=== PATIENT | female | born 1980 | race Caucasian/White ===

== ENCOUNTER 2017-09-03 11:06 | Emergency (ER) | payer OTHER ==
[~2017-09-03] VITALS: Ht 157.4 cm; Wt 47.2 kg
[~2017-09-03 11:06] MED LIST: CIPROFLOXACIN500 MG PO; ESTRADIOL TD; VIBRAMYCIN100 MG PO; [UNRECOGNIZED DRUG - CODE] PO
[2017-09-03] MEDS ORDERED: NAPROSYN500 MG PO (11:36)
[2017-09-03] MEDS ORDERED: CYCLOBENZAPRINE10 MG PO (11:36)
== END 2017-09-03 11:48 | disposition home or self-care (01) ==
LOC: ED 11:06
DX: S29.012A Strain of muscle and tendon of back wall of thorax, initial encounter (principal); X58.XXXA Exposure to other specified factors, initial encounter; Y93.89 Activity, other specified; Y92.89 Other specified places as the place of occurrence of the external cause; Y99.8 Other external cause status

== ENCOUNTER 2017-10-15 17:03 | Emergency (ER) | payer OTHER ==
[~2017-10-15] VITALS: Ht 157.4 cm; Wt 47.2 kg
[~2017-10-15 17:03] MED LIST changes: +CYCLOBENZAPRINE10 MG PO; +NAPROSYN500 MG PO
[2017-10-15] MEDS ORDERED: ZITHROMAX250 MG PO (18:25)
[2017-10-15] MEDS ORDERED: PREDNISONE20 M1 PO (18:25)
[2017-10-15] MEDS ORDERED: FLONASE ALLERG9.9 ML NAS (18:25)
== END 2017-10-15 18:41 | disposition home or self-care (01) ==
LOC: ED 17:03
DX: M25.511 Pain in right shoulder (principal); J01.90 Acute sinusitis, unspecified; Z79.899 Other long term (current) drug therapy

== ENCOUNTER 2017-12-12 16:35 | Emergency (ER) | payer OTHER ==
[~2017-12-12] VITALS: Ht 157.4 cm; Wt 46.3 kg
[~2017-12-12 16:35] MED LIST changes: +FLONASE ALLERG9.9 ML NAS; +PREDNISONE20 M1 PO; +ZITHROMAX250 MG PO
[2017-12-12] MEDS ORDERED: PREDNISONE20 M1 PO (17:02)
== END 2017-12-12 17:15 | disposition home or self-care (01) ==
LOC: ED 16:35
DX: L23.7 Allergic contact dermatitis due to plants, except food (principal); Z79.899 Other long term (current) drug therapy

== ENCOUNTER 2019-04-17 21:29 | Emergency (ER) | payer OTHER ==
[~2019-04-17] VITALS: Ht 160 cm; Wt 47.6 kg
--- NOTE | ~2019-04-17 | EKG ---
[place], [place] ELECTROCARDIOGRAM REPORT NAME: FELICIANO RAMIREZ UNIT #: [id number] ROOM: DOCTOR: PATT DRAFT REPORT BIRTHDATE: [birth year] [facility] Test Date: 2019-04-17 Test Time: 22:21:54 Pat Name: FELICIANO RAMIREZ Department: Room: Gender: F Business Project Manager: SS RESP : 1980 Requested By: GAVIN RUIZ DNP Order Number: [id number] Reading MD: Kayleigh Moreno MD Measurements Intervals [place] Rate: 64 P: 58 HI: 118 QRS: 94 QRSD: 89 T: 32 QT: 392 QTc: 405 Interpretive Statements Sinus rhythm Borderline short HI interval Borderline right axis deviation Electronically Signed On 04-26-2019 5:28:50 PST by Kayleigh Moreno MD CM:EKGRPT:ELECTROCARDIOGRAM REPORT [id number] GAVIN BELTRE DRAFT REPORT GAVIN RUIZ DNP
[2019-04-17 22:00] LABS: BASO % 0.1 % (0.0-1.0); EOS # 0.1 10*3/uL (0.0-0.4); EOS % 0.6 % (1.0-4.0); HEMATOCRIT 36.6 % (37.0-47.0); HEMOGLOBIN 12.1 g/dl (12.0-16.0); LYMPH # 1.7 10*3/uL (1.3-4.4); LYMPH % 17.1 % (27.0-41.0); MEAN CELL VOLUME 91.5 fl (81.0-99.0); MEAN CORPUSCULAR HGB 30.3 pg (27.0-31.0); MEAN CORPUSCULAR HGB CONC 33.1 g/dl (33.0-37.0); MEAN PLATELET VOLUME 11.8 fl (9.6-12.3); MONO # 1.1 10*3/uL (0.1-1.0); MONO % 11.1 % (3.0-9.0); NEUT # 7.1 10*3/uL (2.3-7.9); NEUT % 70.8 % (47.0-73.0); PLATELET COUNT AUTOMATED 266 10*3/uL (130-400); RED CELL DISTRI WIDTH 12.3 % (0-14.5)
[2019-04-17 22:10] LABS: ACT PARTIAL THROMBO TIME 25.8 SECONDS (20.0-32.1); INTERNATIONAL NORM RATIO 0.9 (2.0-3.5)
[2019-04-17 22:18] LABS: ALBUMIN 3.2 gm/dl (3.1-4.5); ALKALINE PHOSPHATASE 104 U/L (45-117); BUN 10 mg/dl (7-24); CHLORIDE 110 mmol/L (98-107); CREATININE 0.84 mg/dL (0.55-1.02); LIPASE 85 U/L (73-393); POTASSIUM 3.4 mmol/L (3.5-5.1); SGOT/AST 18 IU/L (3-35); SGPT/ALT 17 U/L (12-78); SODIUM 139 mmol/L (136-145); TOTAL PROTEIN 7.3 gm/dL (6.4-8.2)
[2019-04-17 22:27] LABS: TROPONIN I < 0.015 ng/ml (<0.045)
[2019-04-17] MEDS ORDERED: PROVENTIL HFA6.7 GM INH (22:35)
[2019-04-17] MEDS ORDERED: PREDNISONE20 M1 PO (22:35)
[2019-04-17] MEDS ORDERED: ROBITUSSIN DM 101 OZ PO (22:35)
== END 2019-04-17 23:04 | disposition home or self-care (01) ==
LOC: ED 21:29
PROVIDERS: Nurse Practitioner Family
DX: J20.8 Acute bronchitis due to other specified organisms (principal); Z79.899 Other long term (current) drug therapy

== ENCOUNTER 2019-04-23 17:17 | Emergency (ER) | payer OTHER ==
[~2019-04-23] VITALS: Ht 160 cm; Wt 47.6 kg
[~2019-04-23 17:17] MED LIST changes: +PROVENTIL HFA6.7 GM INH; +ROBITUSSIN DM 101 OZ PO
[2019-04-23] MEDS ORDERED: TESSALON PERLE100 M1 PO (19:26)
[2019-04-23] MEDS ORDERED: PROVENTIL HFA6.7 GM INH (19:26)
[2019-04-23] MEDS ORDERED: PREDNISONE20 M1 PO (19:26)
== END 2019-04-23 19:27 | disposition home or self-care (01) ==
LOC: ED 17:17
DX: J20.8 Acute bronchitis due to other specified organisms (principal); Z79.899 Other long term (current) drug therapy

== ENCOUNTER 2020-02-09 17:54 | Emergency (ER) | payer OTHER ==
[~2020-02-09] VITALS: Ht 160 cm; Wt 46.7 kg
[~2020-02-09 17:54] MED LIST changes: +TESSALON PERLE100 M1 PO
[2020-02-09] MEDS ORDERED: ESTRADIOL IJ (18:26)
[2020-02-09] MEDS ORDERED: PROGESTERONE V (18:27)
[2020-02-09] MEDS ORDERED: CORTISONE SHOT (18:28)
[2020-02-09 19:07] LABS: EOS % 0.5 % (1.0-4.0); HEMATOCRIT 34.8 % (37.0-47.0); LYMPH # 1.3 10*3/uL (1.3-4.4); LYMPH % 21.5 % (27.0-41.0); MEAN CELL VOLUME 88.8 fl (81.0-99.0); MEAN CORPUSCULAR HGB 29.6 pg (27.0-31.0); MEAN CORPUSCULAR HGB CONC 33.3 g/dl (33.0-37.0); MEAN PLATELET VOLUME 12.5 fl (9.6-12.3); MONO # 0.8 10*3/uL (0.1-1.0); MONO % 12.2 % (3.0-9.0); NEUT # 4.1 10*3/uL (2.3-7.9); NEUT % 65.5 % (47.0-73.0); PLATELET COUNT AUTOMATED 233 10*3/uL (130-400); RED BLOOD COUNT 3.92 10*6/uL (4.10-5.10); RED CELL DISTRI WIDTH 13.2 % (0-14.5); WHITE BLOOD COUNT 6.2 10*3/uL (4.8-10.8)
[2020-02-09 19:23] LABS: ALBUMIN 3.2 gm/dl (3.1-4.5); ALKALINE PHOSPHATASE 109 U/L (45-117); BUN 7 mg/dl (7-24); CHLORIDE 104 mmol/L (98-107); CREATININE 0.77 mg/dL (0.55-1.02); SGOT/AST 18 IU/L (3-35); SGPT/ALT 14 U/L (12-78); SODIUM 142 mmol/L (136-145); TOTAL PROTEIN 7.6 gm/dL (6.4-8.2)
[2020-02-09 19:25] LABS: POTASSIUM 2.4 mmol/L (3.5-5.1)
[2020-02-09 23:46] LABS: ALBUMIN 2.7 gm/dl (3.1-4.5); ALKALINE PHOSPHATASE 93 U/L (45-117); BUN 6 mg/dl (7-24); CHLORIDE 109 mmol/L (98-107); POTASSIUM 2.7 mmol/L (3.5-5.1); SGOT/AST 14 IU/L (3-35); SGPT/ALT 13 U/L (12-78); SODIUM 142 mmol/L (136-145); TOTAL PROTEIN 6.3 gm/dL (6.4-8.2)
[2020-02-10 08:51] LABS: POTASSIUM 3.2 mmol/L (3.5-5.1)
== END 2020-02-10 09:47 | disposition home or self-care (01) ==
LOC: ED 17:54
PROVIDERS: Emergency Medicine; Physician Assistant
DX: R60.0 Localized edema (principal); E87.6 Hypokalemia; Z79.899 Other long term (current) drug therapy

== ENCOUNTER 2021-11-28 09:41 | Emergency (ER) | payer OTHER ==
[~2021-11-28] VITALS: Wt 46.7 kg
[~2021-11-28 09:41] MED LIST changes: +CORTISONE SHOT; +ESTRADIOL IJ; +PROGESTERONE V
[2021-11-28 10:38] LABS: BASO % 0.2 % (0.0-1.0); EOS % 0.1 % (1.0-4.0); HEMATOCRIT 34.8 % (37.0-47.0); LYMPH # 0.5 10*3/uL (1.3-4.4); LYMPH % 4.7 % (27.0-41.0); MEAN CELL VOLUME 84.3 fl (81.0-99.0); MEAN CORPUSCULAR HGB 27.6 pg (27.0-31.0); MEAN CORPUSCULAR HGB CONC 32.8 g/dl (33.0-37.0); MONO # 0.7 10*3/uL (0.1-1.0); MONO % 6.4 % (3.0-9.0); NEUT # 9.4 10*3/uL (2.3-7.9); NEUT % 88.3 % (47.0-73.0); PLATELET COUNT AUTOMATED 227 10*3/uL (130-400); RED BLOOD COUNT 4.13 10*6/uL (4.10-5.10); RED CELL DISTRI WIDTH 14.1 % (0-14.5); WHITE BLOOD COUNT 10.7 10*3/uL (4.8-10.8)
[2021-11-28 10:49] LABS: ACT PARTIAL THROMBO TIME 28.5 SECONDS (20.0-32.1); INTERNATIONAL NORM RATIO 1.1 (2.0-3.5)
[2021-11-28 10:56] LABS: BUN 8 mg/dl (7-24); CHLORIDE 110 mmol/L (98-107); CREATININE 0.99 mg/dL (0.55-1.02); LIPASE 45 U/L (73-393); POTASSIUM 3.3 mmol/L (3.5-5.1); SGOT/AST 11 IU/L (3-35); SGPT/ALT 9 U/L (12-78); SODIUM 139 mmol/L (136-145)
[2021-11-28 10:58] LABS: ALKALINE PHOSPHATASE 98 U/L (45-117)
[2021-11-28 11:00] LABS: BETA-HCG, QUANT < 1.0 mIU/mL (1-3)
[2021-11-28] MEDS ORDERED: ZITHROMAX250 MG PO (12:45)
[2021-11-28] MEDS ORDERED: PEPCID20 MG PO (12:45)
== END 2021-11-28 12:55 | disposition home or self-care (01) ==
LOC: ED 09:41
PROVIDERS: Emergency Medicine
DX: J18.9 Pneumonia, unspecified organism (principal); K21.9 Gastro-esophageal reflux disease without esophagitis

== ENCOUNTER → 2023-07-23 | Outpatient (CLI) | payer BC ==
[~2023-07-23] MED LIST changes: +PEPCID20 MG PO
== END | disposition home or self-care (01) ==
LOC: MAMMO 12:59
PROVIDERS: ATTEND Family Medicine
DX: R92.30 Dense breasts, unspecified (principal); N63.20 Unspecified lump in the left breast, unspecified quadrant; N63.10 Unspecified lump in the right breast, unspecified quadrant